=== PATIENT | female | born 1990 | race Caucasian/White ===

== ENCOUNTER 2021-03-20 16:35 | Emergency (ER) | payer OTHER ==
[2021-03-20] MEDS ORDERED: VENTOLIN HFA18 GM INH (18:03)
== END 2021-03-20 18:13 | disposition home or self-care (01) ==
LOC: FER 16:35
DX: T59.811A Toxic effect of smoke, accidental (unintentional), initial encounter (principal); R05 Cough; Y92.009 Unspecified place in unspecified non-institutional (private) residence as the place of occurrence of the external cause
CPT/HCPCS: 71046